=== PATIENT | female | born 1975 | race Caucasian/White ===

== ENCOUNTER → 2016-05-06 | Outpatient (CLI) | payer BC ==
[~2016-05-06] MED LIST: ASCO500C43 PO; BUPR-79 PO; CHOL100027 PO; CLARITIN D PO; MPR50 PO; OPTIRAY 320 IV PRN
--- NOTE | 2016-05-06 12:45 | DIAGNOSTIC IMAGING REPORT ---
CHEST CT WITH CONTRAST CT DOSE: HISTORY: Metastatic squamous cell cancer. TECHNIQUE: Multiaxial CT images of the chest were performed following the intravenous administration of contrast. COMPARISON: Chest CT 02/19/2016. PET CT 03/03/2016. FINDINGS: The prevascular lymph node on the prior studies appears to have resolved in the interval. A few hypodense lesions within the liver do not appear to be significantly changed. These are better appreciated on the same day abdomen and pelvis CT. There is no mediastinal or hilar lymphadenopathy. No pleural or pericardial effusions. No axillary lymphadenopathy. Old, healed left posterior fifth rib fracture. No suspicious lytic or blastic osseous lesions. No pneumothorax. The central airways are patent. Postoperative changes consistent with a prior right middle lobectomy. There is suture material along the right major fissure within the linear scarlike density. This is not significantly changed. No focal lung consolidations. No suspicious pulmonary nodules. IMPRESSION: 1. Interval resolution of the prevascular lymph node. No evidence for recurrent or metastatic disease within the chest. 2. Postoperative changes as described above. 3. Please refer to the dedicated abdomen and pelvis CT performed the same day for further evaluation of the abdominal structures. Electronically signed by: Dawit Arredondo M.D. 05/06/2016 12:43 PM Dictated Date/Time: 05/06/2016 12:35 PM
--- NOTE | 2016-05-06 12:50 | DIAGNOSTIC IMAGING REPORT ---
CT OF THE ABDOMEN AND PELVIS WITH CONTRAST CLINICAL HISTORY: Metastatic squamous cell carcinoma. COMPARISON STUDY: CT of the abdomen and pelvis October 17, 2013 and PET/CT March 11, 2016. TECHNIQUE: Following IV administration of 119 mL of Optiray-320, axial images of the abdomen and pelvis were obtained from the lung bases to the proximal femurs. Images were reviewed in the axial, sagittal, and coronal planes. IV contrast was administered without complication. Oral contrast was administered. CT DOSE: 652.55 mGy.cm FINDINGS: The chest will be reported separately. Several hepatic lesions are unchanged since exam of October 17, 2013. The largest of these is a 2.2 cm partially enhancing right hepatic lobe lesion. These lesions are benign given stability. The spleen, adrenal glands, kidneys and pancreas are normal. There is no hydronephrosis. There is no biliary or pancreatic ductal dilatation. No enlarged abdominal or pelvic lymph nodes are present. The uterus is surgically absent. No suspicious osseous lesions are present. IMPRESSION: 1. No evidence of metastatic disease within the abdomen or pelvis. 2. No change in several hepatic lesions since exam of October 17, 2013. These are benign given stability. Electronically signed by: Mayur Valencia M.D. 05/06/2016 12:48 PM Dictated Date/Time: 05/06/2016 12:41 PM
== END | disposition home or self-care (01) ==
LOC: C.CTS 11:46
PROVIDERS: ATTEND Internal Medicine Hematology & Oncology
DX: C78.00 Secondary malignant neoplasm of unspecified lung (principal)

== ENCOUNTER → 2016-05-13 | Outpatient (CLI) | payer BC ==
[~2016-05-13] MED LIST changes: -OPTIRAY 320 IV PRN
[2016-05-13 12:17] LABS: BASO % 0.9 %; BASO ABS # 0.04 K/uL (0-0.2); COMPLETE YES; EOS % 1.2 %; HEMATOCRIT 35.8 % (37-47); IG% 0.2 %; LYMPH % 33.3 %; LYMPH ABS # 1.41 K/uL (1.2-3.4); MEAN CORPUSCULAR HEMOGLOBIN 30.8 pg (25-34); MEAN CORPUSCULAR HGB CONC 33.5 g/dl (32-36); MEAN PLATELET VOLUME 9.8 fL (7.4-10.4); MONO % 9.7 %; NEUT % 54.7 %; PLATELET COUNT 313 K/uL (130-400); RED BLOOD COUNT 3.89 M/uL (4.2-5.4); WHITE BLOOD COUNT 4.23 K/uL (4.8-10.8)
== END | disposition home or self-care (01) ==
LOC: C.LABPVFM 08:26
PROVIDERS: ATTEND Internal Medicine Hematology & Oncology
DX: C78.00 Secondary malignant neoplasm of unspecified lung (principal)

== ENCOUNTER → 2016-07-12 | Outpatient (CLI) | payer BC ==
[~2016-07-12] MED LIST changes: +OPTIRAY 320 IV PRN
--- NOTE | 2016-07-12 09:49 | DIAGNOSTIC IMAGING REPORT ---
CT OF THE CHEST WITH IV CONTRAST CLINICAL HISTORY: Metastatic squamous cell carcinoma. COMPARISON STUDY: PET/CT March 11, [address] May 06, 2016. TECHNIQUE: Following IV administration of 93 mL of Optiray-320, helical axial images of the chest were obtained. Images were viewed in the axial, sagittal and coronal planes. IV contrast was administered without complication. CT DOSE: 289.32 mGycm FINDINGS: No enlarged axillary, mediastinal or hilar lymph nodes are present. The size of the heart is normal. There is no pericardial effusion. The enlarged prevascular lymph node shown on PET/CT of March 11, 2016 is not visualized. Postoperative findings consistent with a right middle lobe resection are unchanged. No new pulmonary nodules are present. Central airways are patent. Bony thorax is unremarkable. Several hepatic lesions are unchanged since earlier study of October 17, 2013. These are benign given stability. IMPRESSION: No evidence of residual or recurrent malignancy within the chest. Electronically signed by: Mayur Valencia M.D. 07/12/2016 9:48 AM Dictated Date/Time: 07/12/2016 9:41 AM
--- NOTE | 2016-07-12 09:58 | DIAGNOSTIC IMAGING REPORT ---
CT OF THE ABDOMEN AND PELVIS WITH CONTRAST CLINICAL HISTORY: Metastatic squamous cell carcinoma of the lung. History of cervical cancer. COMPARISON STUDY: PET/CT March 11, [address] of the abdomen and pelvis May 06, 2016. TECHNIQUE: Following IV administration of 93 mL of Optiray-320, axial images of the abdomen and pelvis were obtained from the lung bases to the proximal femurs. Images were reviewed in the axial, sagittal, and coronal planes. IV contrast was administered without complication. Oral contrast was administered. CT DOSE: 785.23 mGycm FINDINGS: The chest will be reported separately. Multiple hepatic lesions, several which are hypervascular are unchanged since CT of October 17, 2013. The largest is a 2.7 cm medial segment left hepatic lobe lesion. There is a 2.2 cm right hepatic lobe lesion. These represent hemangiomas. The spleen, adrenal glands, kidneys and pancreas are normal. There is no abdominal or pelvic lymphadenopathy. There is no biliary or pancreatic duct dilatation. No suspicious osseous lesions are present. IMPRESSION: 1. No evidence of metastatic disease within the abdomen or pelvis. 2. Stable hepatic lesions since CT of October 17, 2013. These are benign given stability. Electronically signed by: Mayur Valencia M.D. 07/12/2016 9:56 AM Dictated Date/Time: 07/12/2016 9:31 AM
== END | disposition home or self-care (01) ==
LOC: C.CTS 08:32
PROVIDERS: ATTEND Nurse Practitioner Family
DX: C78.00 Secondary malignant neoplasm of unspecified lung (principal)

== ENCOUNTER → 2016-09-30 | Outpatient (CLI) | payer BC ==
[~2016-09-30] MED LIST changes: -OPTIRAY 320 IV PRN
--- NOTE | 2016-09-30 16:27 | MAMMOGRAPHY REPORT ---
BILATERAL DIGITAL SCREENING MAMMOGRAM TOMOSYNTHESIS WITH CAD: 09/30/2016 CLINICAL HISTORY: Routine screening. Patient has no complaints. TECHNIQUE: Breast tomosynthesis in addition to standard 2D mammography was performed. Current study was also evaluated with a Computer Aided Detection (CAD) system. COMPARISON: Comparison is made to exams dated: 09/27/2015 mammogram, 08/15/2014 mammogram, 08/12/2013 mit[facility] mogram, 08/11/2012 mammogram, 08/09/2011 mammogram, and 08/06/2010 mammogram - [facility]. BREAST COMPOSITION: The tissue of both breasts is heterogeneously dense, which may obscure small mas ses. FINDINGS: There is stable focal asymmetry in the right upper outer quadrant. No new suspicious mass, architectural distortion or cluster of microcalcifications is seen. IMPRESSION: ACR BI-RADS CATEGORY 1: NEGATIVE There is no mammographic evidence of malignancy. A 1 year screening mammogram is recommended. The pa tient will receive written notification of the results. Approximately 10% of breast cancers are not detected with mammography. A negative mammographic report should not delay biopsy if a clinically suggestive mass is present. Jessica Hernandez M.D. ay/:09/30/2016 15:55:41 Stage Driver: Cat Bueno, [facility] letter sent: Normal 1/2 BI-RADS Code: ACR BI-RADS Category 1: Negative
== END | disposition home or self-care (01) ==
LOC: C.MAMM 08:36
PROVIDERS: ATTEND Obstetrics & Gynecology
DX: Z12.31 Encounter for screening mammogram for malignant neoplasm of breast (principal)

== ENCOUNTER → 2016-10-01 | Outpatient (CLI) | payer BC ==
[~2016-10-01] MED LIST changes: +OPTIRAY 320 IV PRN
--- NOTE | 2016-10-01 12:06 | DIAGNOSTIC IMAGING REPORT ---
ABDOMEN AND PELVIS CT WITH IV AND ORAL CONTRAST CT DOSE: HISTORY: Lung carcinoma. 08/05/16 0750 CREAK 0.86 TECHNIQUE: Multiaxial CT images of the abdomen and pelvis were performed following the use of intravenous and oral contrast. COMPARISON STUDY: 07/12/2016 FINDINGS: Lung bases are clear. Hypodensities and or nodularity of the right as well as left hepatic lobe is stable and nonprogressive. Spleen is uniform. Kidneys negative for mass or hydronephrosis. Pancreas is unremarkable. Bowel pattern is nonobstructive. There is no significant retroperitoneal abdominal or pelvic adenopathy. The appendix is normal. Bladder is midline. The neural regions are unremarkable. The osseous structures show no definite lytic or blastic process. IMPRESSION: 1. Stable evaluation of the abdomen and pelvis. 2. No change in the hepatic lesions which of been described previously on several reports. 3. No evidence for metastatic disease. Electronically signed by: Edvin Stringer M.D. 10/01/2016 12:05 PM Dictated Date/Time: 10/01/2016 12:01 PM
--- NOTE | 2016-10-01 12:07 | DIAGNOSTIC IMAGING REPORT ---
CT OF THE CHEST WITH IV CONTRAST CLINICAL HISTORY: Lung carcinoma COMPARISON STUDY: 07/12/2016 TECHNIQUE: Following the IV administration of 92 mL of Optiray-320, CT of the thorax was performed from the thoracic inlet to the lung bases. Images are reviewed in the axial, sagittal, and coronal planes. IV contrast was administered without complication. CT DOSE: 720.45 mGy.cm FINDINGS: Thyroid: Imaged portions of the thyroid gland are normal in appearance. Thoracic aorta: The thoracic aorta is normal in course and caliber, noting standard 3-vessel arch anatomy. No aneurysm or dissection is seen. Pulmonary vasculature: The pulmonary trunk is normal in caliber. There are no central filling defects identified to suggest pulmonary embolus. Note that this examination was not protocoled for the evaluation of pulmonary emboli. HEART: The heart is normal in size and configuration, without pericardial effusion. Lungs and pleural spaces: There are postsurgical changes of a right middle lobe resection. There is a stable 2 mm right upper lobe pulmonary nodule as visualized in image #98/321. No new or enlarging pulmonary nodules are visualized. There is no acute parenchymal consolidation. Mediastinum: There is no mediastinal lymphadenopathy. Siobhan: Clear. Axilla: Clear. Upper abdomen: Multiple hepatic masses, remain unchanged from multiple preceding studies Skeletal structures: There are no lytic or blastic osseous lesions. IMPRESSION: No change from the preceding study. No CT evidence of recurrent disease within the chest. Electronically signed by: Jason Wahl M.D. 10/01/2016 12:05 PM Dictated Date/Time: 10/01/2016 11:58 AM
== END | disposition home or self-care (01) ==
LOC: C.CTS 11:35
PROVIDERS: ATTEND Internal Medicine Hematology & Oncology
DX: C78.00 Secondary malignant neoplasm of unspecified lung (principal)

== ENCOUNTER → 2017-01-01 | Outpatient (CLI) | payer BC ==
--- NOTE | 2017-01-01 13:11 | DIAGNOSTIC IMAGING REPORT ---
CT SCAN OF THE ABDOMEN AND PELVIS WITH IV CONTRAST CLINICAL HISTORY: Metastatic squamous cell carcinoma. COMPARISON STUDY: Abdominal CT dated 10/01/2016 and abdominal MRI dated 02/08/2011. TECHNIQUE: Following the IV administration of 95 cc of Optiray 320, CT scan of the abdomen and pelvis is performed from the lung bases to the proximal femora. Images are reviewed in the axial, sagittal, and coronal planes. IV contrast was administered without complication. A dose lowering technique was utilized adhering to the principles of ALARA. FINDINGS: Lung bases: The heart is normal in size and without pericardial effusion. A fat-containing Bochdalek hernia is present at the right lung base. Postoperative change is partially seen in the right middle lobe. The lung bases are otherwise clear. Liver: The contrast-enhanced liver is normal in size, contour, and attenuation. There is no intrahepatic biliary ductal dilatation. The hepatic veins and portal veins are patent. There are at least 5 low-attenuation liver lesions identified. The largest is in the left lobe as seen on image #106 and measures up to 3.3 cm. These demonstrate foci of peripheral nodular enhancement and are unchanged dating back to 2010. These likely represent hemangiomas. Gallbladder: Unremarkable. Spleen: Normal in size and attenuation. Pancreas: Unremarkable. Adrenal glands: Unremarkable. Kidneys: The contrast enhanced kidneys are normal in size and without hydronephrosis. The kidneys enhance symmetrically. Abdominal vasculature: The abdominal aorta is normal in course and caliber. Bowel: The small bowel and colon are normal in course and caliber. There is moderate colonic fecal retention. The appendix is well-visualized and normal. Peritoneum: There is no intraperitoneal free air or abdominal ascites. There is a small fat-containing local hernia. A small fat-containing supraumbilical hernia is seen on image #160. Lymphadenopathy: None. Pelvic viscera: The bladder is normal as visualized. The uterus is surgically absent. No adnexal lesion is seen. Skeletal structures: No lytic or blastic lesions are seen. IMPRESSION: 1. There is no evidence of metastatic disease in the abdomen or pelvis. 2. Again seen are at least 5 hepatic lesions. These are unchanged dating back to 2010 and likely represent hemangiomas. Electronically signed by: Migel Vasques M.D. 01/01/2017 1:10 PM Dictated Date/Time: 01/01/2017 1:03 PM
--- NOTE | 2017-01-01 13:40 | DIAGNOSTIC IMAGING REPORT ---
CT OF THE CHEST WITH IV CONTRAST CLINICAL HISTORY: Metastatic squamous cell carcinoma. COMPARISON STUDY: Chest CT October 01, 2016 and PET/CT March 11, 2016. TECHNIQUE: Following IV administration of 95 mL of Optiray-320, helical axial images of the chest were obtained. Sagittal and coronal reconstructions were viewed as well as maximal intensity projections on an independent 3-D workstation. A dose lowering technique was utilized adhering to the principles of ALARA. CT DOSE: 694.98 mGy.cm FINDINGS: No enlarged axillary, mediastinal or hilar lymph nodes are present. The size of the heart is normal. There is no pericardial effusion. Postoperative findings within the right lung are stable. There are no suspicious pulmonary nodules. A 5 mm right upper lobe nodule shown image 148 of 321 is unchanged from earlier studies. This is benign given stability. There are no new pulmonary nodules. No suspicious osseous lesions are present. There is a healed fracture of the posterior left fifth rib. The abdomen and pelvis will be reported separately. However, multiple hepatic lesions are unchanged from earlier studies and likely reflect hemangiomas. IMPRESSION: No evidence of recurrent or residual malignancy within the chest. Electronically signed by: Mayur Valencia M.D. 01/01/2017 1:38 PM Dictated Date/Time: 01/01/2017 1:03 PM
== END | disposition home or self-care (01) ==
LOC: C.CTS 08:41
PROVIDERS: ATTEND Internal Medicine Hematology & Oncology
DX: C78.00 Secondary malignant neoplasm of unspecified lung (principal); Z85.40 Personal history of malignant neoplasm of unspecified female genital organ

== ENCOUNTER → 2017-01-23 | Outpatient (CLI) | payer BC ==
[~2017-01-23] MED LIST changes: -OPTIRAY 320 IV PRN
== END | disposition home or self-care (01) ==
LOC: C.PAPS 11:14
PROVIDERS: ATTEND Obstetrics & Gynecology
DX: Z01.419 Encounter for gynecological examination (general) (routine) without abnormal findings (principal)

== ENCOUNTER → 2017-03-18 | Outpatient (CLI) | payer BC ==
[~2017-03-18] MED LIST changes: +OPTIRAY 320 IV PRN
--- NOTE | 2017-03-18 15:25 | DIAGNOSTIC IMAGING REPORT ---
CT ABD/PELVIS IV AND ORAL CONT CLINICAL HISTORY: Metastatic squamous cell carcinoma COMPARISON STUDY: 01/01/2017 TECHNIQUE: Following the IV administration of 93 mL of Optiray-320, CT scan of the abdomen and pelvis was performed from the lung bases to the proximal femurs. Images are reviewed in the axial, sagittal, and coronal planes. IV contrast was administered without complication. A dose lowering technique was utilized adhering to the principles of ALARA. CT DOSE: 533.47 mGy.cm FINDINGS: Lower chest: The heart is normal in size and configuration, without pericardial effusion. The lung bases and pleural spaces are clear. Liver: There is a 21 mm mass within the right hepatic lobe. There is a 31 mm hypodense lesion within the left hepatic lobe abutting the falciform ligament. There is a third hypodense lesion within the lateral segment left hepatic lobe measuring 7 mm. There is a fourth hypodense lesion medially beneath the dome of diaphragm measuring 9 mm. These lesions are essentially unchanged in size from prior studies dating back to 2010. An MRI study indicated these likely represent hemangiomas. Gallbladder: Unremarkable. Spleen: Normal in size and attenuation. Pancreas: Unremarkable. Adrenal glands: Unremarkable. Kidneys: There is symmetric renal cortical enhancement. The kidneys are normal in size without hydronephrosis. Bowel: There are no transition zones indicate bowel obstruction. There is no acute diverticulitis. There is no evidence of acute appendicitis. Peritoneum: There is no intraperitoneal free air or abdominal ascites. Vasculature: The abdominal aorta is normal in course and caliber. Adenopathy: None. Pelvic viscera: The uterus appears surgically absent Skeletal structures: No destructive osseous lesions are seen. IMPRESSION: 1. Stable hepatic masses (x6 years). These likely represent hemangiomas 2. No evidence of metastatic disease within the abdomen or pelvis. Electronically signed by: Jason Wahl M.D. 03/18/2017 3:24 PM Dictated Date/Time: 03/18/2017 3:18 PM
--- NOTE | 2017-03-18 15:52 | DIAGNOSTIC IMAGING REPORT ---
CT SCAN OF THE CHEST WITH IV CONTRAST CLINICAL HISTORY: Metastatic squamous cell carcinoma. COMPARISON STUDY: Chest CT scans dated 01/01/2017 and 08/01/2015. TECHNIQUE: Following the IV administration of 93 cc of Optiray 320, CT scan of the thorax was performed from the thoracic inlet to the upper abdomen. Images are reviewed in the axial, sagittal, and coronal planes. IV contrast was administered without complication. A dose lowering technique was utilized adhering to the principles of ALARA. FINDINGS: Thyroid: Imaged portions of the thyroid gland are normal in size and attenuation. Thoracic aorta: The thoracic aorta is normal in caliber and demonstrates bovine variant arch anatomy. No dissection is seen. Pulmonary vasculature: The pulmonary trunk is normal in caliber. There are no filling defects identified in the central pulmonary vessels to indicate pulmonary embolus. Note that this examination was not protocoled for evaluation of the pulmonary arteries. Heart: The heart is normal in size and configuration, and without pericardial effusion. Lungs and pleural spaces: Minimal emphysematous change is suggested. There are postoperative changes from right middle lobe resection. No airspace consolidation or pleural effusion is seen. A 3 mm right upper lobe pulmonary nodule is seen image #94 and a 3 mm left lower lobe nodule is seen on image #191. This is unchanged dating back to 08/01/2015 and is of doubtful significance. No new pulmonary nodule is identified. The trachea and central airways are patent. Mediastinum: There is no mediastinal lymphadenopathy. Siobhan: Clear. Axillae: There is no axillary lymphadenopathy. Upper abdomen: There are at least 5 low-attenuation hepatic lesions measuring up to 2.7 cm, unchanged over multiple prior studies. These are incompletely characterized on today's examination an likely represent hemangiomas. No adrenal lesion is seen. Skeletal structures: No lytic or blastic bony lesions are seen. IMPRESSION: 1. There is no convincing evidence of recurrent or metastatic disease in the thorax, and there has been no significant change from 01/01/2017. 2. No airspace consolidation or pleural effusion is identified. 3. Two 3 mm pulmonary nodules located in the right upper and left lower lobes are unchanged from prior studies. These are pathologically indeterminant but of low suspicion. No new pulmonary nodule is seen. 4. Numerous hepatic lesions are unchanged. These are incompletely characterized and likely represent hemangiomas. Electronically signed by: Migel Vasques M.D. 03/18/2017 3:51 PM Dictated Date/Time: 03/18/2017 3:42 PM
== END | disposition home or self-care (01) ==
LOC: C.CTS 14:27
PROVIDERS: ATTEND Nurse Practitioner Family
DX: C78.00 Secondary malignant neoplasm of unspecified lung (principal); R16.0 Hepatomegaly, not elsewhere classified; R91.8 Other nonspecific abnormal finding of lung field

== ENCOUNTER → 2017-06-19 | Outpatient (CLI) | payer OTHER ==
--- NOTE | 2017-06-19 12:19 | DIAGNOSTIC IMAGING REPORT ---
CT OF THE CHEST WITH IV CONTRAST CLINICAL HISTORY: LUNG CA COMPARISON STUDY: 03/18/2017 TECHNIQUE: Following the IV administration of 119 mL of Optiray-320, CT of the thorax was performed from the thoracic inlet to the lung bases. Images are reviewed in the axial, sagittal, and coronal planes. IV contrast was administered without complication. A dose lowering technique was utilized adhering to the principles of ALARA. CT DOSE: FINDINGS: Thyroid: Imaged portions of the thyroid gland are normal in appearance. Thoracic aorta: The thoracic aorta is normal in course and caliber, noting standard 3-vessel arch anatomy. No aneurysm or dissection is seen. Pulmonary vasculature: The pulmonary trunk is normal in caliber. There are no central filling defects identified to suggest pulmonary embolus. Note that this examination was not protocoled for the evaluation of pulmonary emboli. HEART: The heart is normal in size and configuration, without pericardial effusion. Lungs and pleural spaces: There are postsurgical changes of a right middle lobectomy. There are no pleural effusions. There is no focal pulmonary consolidation. There is a stable 2.5 mm left lower lobe pulmonary nodule as visualized in image #198/326. There is a stable 2.5 mm right upper lobe pulmonary nodule as visualized in image #103/326. Mediastinum: There is no mediastinal lymphadenopathy. Siobhan: There is no evidence of pathologic hilar adenopathy Axilla: There is no evidence of pathologic axillary lymphadenopathy Upper abdomen: Multiple hypodense hepatic lesions remain similar to the prior study. These have previously been described as benign. Skeletal structures: There are no lytic or blastic osseous lesions. IMPRESSION: 1. No evidence of recurrent neoplasm within the chest 2. No evidence of focal pulmonary consolidation 3. No evidence of pathologic adenopathy 4. Stable 2.5 mm pulmonary nodules 5. Stable hypodense hepatic lesions Electronically signed by: Jason Wahl M.D. 06/19/2017 12:18 PM Dictated Date/Time: 06/19/2017 12:08 PM
--- NOTE | 2017-06-19 12:25 | DIAGNOSTIC IMAGING REPORT ---
ABD/PELVIS IV AND ORAL CONT CT DOSE: HISTORY: Lung carcinoma LUNG CANCER TECHNIQUE: Multiaxial CT images of the abdomen and pelvis were performed following the use of intravenous and oral contrast. A dose lowering technique was utilized adhering to the principles of ALARA. COMPARISON STUDY: 03/18/2017 FINDINGS: Lung bases are clear. Stable hypodensities of the liver with hemangioma the most likely etiology. No evidence for metastatic disease based on this exam. The adrenal glands are normal. The kidneys enhance uniformly. Bowel pattern is considered nonobstructive throughout. No significant abdominal pelvic or inguinal adenopathy. IMPRESSION: No significant abnormality identified within the abdomen or pelvis. Stable hepatic hemangiomas. The above report was generated using voice recognition software. It may contain grammatical, syntax or spelling errors. Electronically signed by: Edvin Stringer M.D. 06/19/2017 12:24 PM Dictated Date/Time: 06/19/2017 12:09 PM
== END | disposition home or self-care (01) ==
LOC: C.CTS 11:47
PROVIDERS: ATTEND Internal Medicine Hematology & Oncology
DX: C78.00 Secondary malignant neoplasm of unspecified lung (principal)